=== PATIENT | female | born 1960 | race Two or more races ===

== ENCOUNTER 2018-11-02 17:08 | Emergency (ER) | payer SELFPAY ==
[~2018-11-02] VITALS: Ht 170.2 cm; Wt 71.2 kg
[2018-11-02 17:39] LABS: BASO % 0 % (0-3); EOS % 0 % (0-3); HEMATOCRIT 39.2 % (36.0-47.0); HEMOGLOBIN 13.4 g/dL (12.0-15.5); LYMPH # 0.7 x10^3/uL (1.0-4.8); LYMPH % 6 % (24-48); MEAN CORPUSCULAR HEMOGLOBIN 30 pg (25-35); MEAN CORPUSCULAR HGB CONC 34 g/dL (31-37); MEAN CORPUSCULAR VOLUME 87 fL (79-100); MONO # 0.7 x10^3/uL (0.0-1.1); MONO % 6 % (0-9); NEUT # 11.1 x10^3/uL (1.8-7.7); NEUT % 88 % (31-73); PLATELET COUNT 212 x10^3/uL (140-400); RED CELL DISTRIBUTION WIDTH 12.9 % (11.5-14.5); WHITE BLOOD COUNT 12.6 x10^3/uL (4.0-11.0)
[2018-11-02] MEDS ORDERED: MORPHINE SULFATE 2 MG/ML VIAL. IV ONE (17:45)
[2018-11-02] MEDS ORDERED: ONDANSETRON PF 4 MG/2 ML VIAL. IV ONE (17:45)
[2018-11-02] MEDS ORDERED: IV NORMAL SALINE 1000ML BAG 1,000 ML IV ONE (17:45)
[2018-11-02 17:48] LABS: BILIRUBIN,URINE NEGATIVE (NEG); CLARITY,URINE CLEAR; COLOR,URINE YELLOW; NITRITE,URINE NEGATIVE (NEG); PH,URINE 8.5; PROTEIN,URINE NEGATIVE (NEG-TRACE); UROBILINOGEN,URINE 0.2 mg/dL (0.2 mg/dL)
[2018-11-02 17:50] LABS: CALCIUM 9.3 mg/dL (8.5-10.1); CREATININE 0.8 mg/dL (0.6-1.0); GFR 73.7; POTASSIUM 3.9 mmol/L (3.5-5.1)
[2018-11-02 17:53] LABS: ALBUMIN 4.1 g/dL (3.4-5.0); TOTAL BILIRUBIN 0.6 mg/dL (0.2-1.0); TOTAL PROTEIN 8.2 g/dL (6.4-8.2)
[2018-11-02] MEDS ORDERED: CCPD PATIENT. MC PRN (18:00)
[2018-11-02] MEDS ORDERED: IOHEXOL 300 MG/ML 100ML VIAL. IV ONE (18:00)
[2018-11-02 18:01] LABS: BACTERIA,URINE 0 /HPF (0-FEW); SQUAMOUS EPITHELIAL CELL,UR MOD /LPF; WBC,URINE 0 /HPF (0-4)
--- NOTE | 2018-11-02 18:01 | PHYS DOC ---
Past Medical History Past Medical History: Cancer Additional Past Medical Histor: breast ca Past Surgical History: Tubal ligation, Other Additional Past Surgical Histo: R mastectomy Alcohol Use: None Drug Use: None Adult General Chief Complaint Chief Complaint: DIZZY/LIGHT HEADED HPI HPI Patient is a 58 year old female with a history of thyroid disorder presents to the ED complaining of abdominal pain times one day. States she woke up with upper abdominal pain, body aches and vomiting. Reports he has had body aches for the last 4 days. Describes her pain as achy/sharp. Rates her pain as 6 out of 10. Nothing makes it better or worse. Associated symptoms include mild cough and chills. Denies chest pain, shortness of breath, back pain, neck pain, fever, diarrhea, dysuria or hematuria. Family interprets for patient. Review of Systems Review of Systems Constitutional: Complains of chills. Denies fever. [] Eyes: Denies change in visual acuity, redness, or eye pain [] HENT: Denies nasal congestion or sore throat [] Respiratory: Complains of cough. Denies shortness of breath [] Cardiovascular: No additional information not addressed in HPI [] GI: Complains of nausea, vomiting, abdominal pain. Denies bloody stools or diarrhea [] : Denies dysuria or hematuria [] Musculoskeletal: Denies back pain or joint pain [] Integument: Denies rash or skin lesions [] Neurologic: Denies headache, focal weakness or sensory changes [] All other systems were reviewed and found to be within normal limits, except as documented in this note. Current Medications Current Medications Current Medications Medications (Trade) Dose Ordered Sig/Vikram Start Time Stop Time Status Last Admin Dose Admin Iohexol (Omnipaque 300 Mg/ml) 75 ml 1X ONCE 11/02/18 18:00 11/02/18 18:01 DC 11/02/18 18:13 75 ML Morphine Sulfate (Morphine Sulfate) 2 mg 1X ONCE 11/02/18 17:45 11/02/18 17:46 DC 11/02/18 17:56 2 MG Ondansetron HCl (Zofran) 4 mg 1X ONCE 11/02/18 17:45 11/02/18 17:46 DC 11/02/18 17:56 4 MG Peritoneal Dialysis Solution (Continuous Cycling Peritoneal Dialysis Pt) 1 each PRN DAILY PRN 11/02/18 18:00 Sodium Chloride 1,000 ml @ 1,000 mls/hr 1X ONCE 11/02/18 17:45 11/02/18 18:44 DC 11/02/18 17:56 1,000 MLS/HR Allergies Allergies Allergies Coded Allergies Type Severity Reaction Last Updated Verified No Known Drug Allergies 11/02/18 No Physical Exam Physical Exam Constitutional: Well developed, well nourished, no acute distress, non-toxic appearance. [] HENT: Normocephalic, atraumatic. TM not bulging and without erythema. Mild pharyngeal erythema. no exudate. Uvula midline. Eyes: PERRLA, EOMI, conjunctiva normal, no discharge. [] Neck: Normal range of motion, no tenderness, supple, no stridor. [] Cardiovascular:Heart rate regular rhythm, no murmur [] Lungs & Thorax: Bilateral breath sounds clear to auscultation [] Abdomen: Bowel sounds normal, soft, mild diffuse abdominal tenderness, no masses, no pulsatile masses. [] Skin: Warm, dry, no erythema, no rash. [] Back: No tenderness, no CVA tenderness. [] Extremities: No tenderness, no cyanosis, no clubbing, ROM intact, no edema. [] Neurologic: Alert and oriented X 3, normal motor function, normal sensory function, no focal deficits noted. [] Psychologic: Affect normal, judgement normal, mood normal. [] Current Patient Data Vital Signs Vital Signs Date Time Temp Pulse Resp B/P (MAP) Pulse Ox O2 Delivery O2 Flow Rate FiO2 11/02/18 17:56 18 96 Room Air 11/02/18 17:25 98.3 98 107/67 (80) 98.3 Lab Values Laboratory Tests Test 11/02/18 17:20 11/02/18 17:31 Urine Collection Type Unknown Urine Color Yellow Urine Clarity Clear Urine pH 8.5 Urine Specific [place] 1.025 Urine Protein Negative mg/dL (NEG-TRACE) Urine Glucose (UA) Negative mg/dL (NEG) Urine Ketones (Stick) Negative mg/dL (NEG) Urine Blood Negative (NEG) Urine Nitrite Negative (NEG) Urine Bilirubin Negative (NEG) Urine Urobilinogen Dipstick 0.2 mg/dL (0.2 mg/dL) Urine Leukocyte Esterase Negative (NEG) Urine RBC 1-2 /HPF (0-2) Urine WBC 0 /HPF (0-4) Urine Squamous Epithelial Cells Mod /LPF Urine Bacteria 0 /HPF (0-FEW) Urine Mucus Mod /LPF White Blood Count 12.6 x10^3/uL (4.0-11.0) H Red Blood Count 4.50 x10^6/uL (3.50-5.40) Hemoglobin 13.4 g/dL (12.0-15.5) Hematocrit 39.2 % (36.0-47.0) Mean Corpuscular Volume 87 fL (79-100) Mean Corpuscular Hemoglobin 30 pg (25-35) Mean Corpuscular Hemoglobin Concent 34 g/dL (31-37) Red Cell Distribution Width 12.9 % (11.5-14.5) Platelet Count 212 x10^3/uL (140-400) Neutrophils (%) (Auto) 88 % (31-73) H Lymphocytes (%) (Auto) 6 % (24-48) L Monocytes (%) (Auto) 6 % (0-9) Eosinophils (%) (Auto) 0 % (0-3) Basophils (%) (Auto) 0 % (0-3) Neutrophils # (Auto) 11.1 x10^3/uL (1.8-7.7) H Lymphocytes # (Auto) 0.7 x10^3/uL (1.0-4.8) L Monocytes # (Auto) 0.7 x10^3/uL (0.0-1.1) Eosinophils # (Auto) 0.0 x10^3/uL (0.0-0.7) Basophils # (Auto) 0.0 x10^3/uL (0.0-0.2) Segmented Neutrophils % 77 % (35-66) H Band Neutrophils % 7 % (0-9) Lymphocytes % 8 % (24-48) L Monocytes % 7 % (0-10) Basophils % 1 % (0-3) Platelet Estimate Adequate (ADEQUATE) Sodium Level 135 mmol/L (136-145) L Potassium Level 3.9 mmol/L (3.5-5.1) Chloride Level 99 mmol/L (98-107) Carbon Dioxide Level 27 mmol/L (21-32) Anion Gap 9 (6-14) Blood Urea Nitrogen 12 mg/dL (7-20) Creatinine 0.8 mg/dL (0.6-1.0) Estimated GFR (Cockcroft-Gault) 73.7 BUN/Creatinine Ratio 15 (6-20) Glucose Level 110 mg/dL (70-99) H Calcium Level 9.3 mg/dL (8.5-10.1) Total Bilirubin 0.6 mg/dL (0.2-1.0) Aspartate Amino Transferase (AST) 23 U/L (15-37) Alanine Aminotransferase (ALT) 29 U/L (14-59) Alkaline Phosphatase 123 U/L (46-116) H Troponin I Quantitative < 0.017 ng/mL (0.000-0.055) LN-Cxj-D-Type Natriuretic Peptide 186 pg/mL (0-124) H Total Protein 8.2 g/dL (6.4-8.2) Albumin 4.1 g/dL (3.4-5.0) Albumin/Globulin Ratio 1.0 (1.0-1.7) Lipase 135 U/L (73-393) Laboratory Tests 11/02/18 17:31 Laboratory Tests 11/02/18 17:31 EKG EKG [] Radiology/Procedures Radiology/Procedures []PROCEDURE: CHEST AP ONLY Indication:Upper abdominal pain, dizziness, lightheadedness. TECHNIQUE:Portable AP chest X-ray COMPARISON: None FINDINGS: Heart is normal in size. Diffuse bilateral interstitial opacities without focal consolidation. No pneumothorax or pleural effusion. Visualized bony thorax within normal limits. IMPRESSION: Chronic interstitial changes, atypical/viral infection or mild interstitial pulmonary edema. CT abdomen pelvis with contrast dated 11/02/2018. No comparison available. Clinical data indication: Diffuse abdominal pain. TECHNIQUE: Contiguous axial imaging of the abdomen and pelvis performed after the administration of 75 cc Omnipaque 300. One or more of the following individualized dose reduction techniques were utilized for this examination: 1. Automated exposure control 2. Adjustment of the mA and/or kV according to patient size 3. Use of iterative reconstruction technique. FINDINGS: Limited images of lung bases are clear. Heart size within normal limits. No pleural or pericardial effusion. Diffuse low-density of the liver compatible with fatty infiltration. No apparent mass. Gallbladder unremarkable. Spleen, pancreas, adrenal glands and kidneys are unremarkable. No hydronephrosis. Unopacified GI tract normal in caliber and contour. No focal bowel wall thickening. No inflammatory stranding in the mesentery. The appendix is normal in caliber. No ascites or lymphadenopathy. Abdominal aorta normal in caliber. Images of pelvis show nondistended urinary bladder. The uterus and adnexa are unremarkable. No free fluid or pelvic lymphadenopathy. Bone windows show no acute findings. Mild multilevel spondylosis. IMPRESSION: 1. No acute abnormality of abdomen or pelvis. Normal appendix. 2. Mild fatty infiltration of the liver. Indication:Nausea, vomiting Abdominal pain. TECHNIQUE: Grayscale, color Doppler and spectral waveform is of the abdomen obtained. COMPARISON: CT from same day earlier FINDINGS: Pancreas within normal limits. IVC and aorta are within normal limits. Liver is mildly enlarged measuring 17.5 cm with diffuse increased echogenicity and decreased through transmission. No gallstones, pericholecystic fluid or gallbladder wall thickening. Right kidney measures 9.5 cm in length without hydronephrosis. CBD measures 3 mm in diameter and is within normal limits. IMPRESSION: No cholelithiasis or sonographic evidence of acute cholecystitis. Mild hepatomegaly with hepatic steatosis. Course & Med Decision Making Course & Med Decision Making Pertinent Labs and Imaging studies reviewed. (See chart for details) []Discussed imaging findings with patient. Patient's chest x-ray shows interstitial changes and possible atypical/viral infection. Other imaging unremarkable. Patient has subjective fever, body aches, upper abdominal pain and cough. We'll treat outpatient with azithromycin, prednisone and cough suppressant. Patient well-appearing on reexamination. States she is feeling much better. Discussed symptomatic treatment and follow-up with PCP this week. Provided contact information/education. Discussed reasons to return to the ED. P atient understands and agrees with plan. Dragon Disclaimer Dragon Disclaimer This electronic medical record was generated, in whole or in part, using a voice recognition dictation system. Departure Departure Impression: Primary Impression: Cough Additional Impression: Atypical pneumonia Disposition: 01 HOME, SELF-CARE Condition: IMPROVED Referrals: BRETT PAK MD (PCP) Patient Instructions: Pneumonia, Adult Scripts Benzonatate (TESSALON PERLE) 100 Mg Capsule 1 CAP PO TID, #21 CAP Prov: DESHAUN MORRIS 11/02/18 Prednisone (PREDNISONE) 50 Mg Tablet 1 TAB PO DAILY for 5 Days, #5 TAB Prov: DESHAUN MORRIS 11/02/18 Azithromycin (AZITHROMYCIN TABLET) 250 Mg Tablet 1 PKG PO UD, #6 TAB Prov: DESHAUN MORRIS 11/02/18 Problem Qualifiers DESHAUN MORRIS Nov 02, 2018 18:01
--- NOTE | 2018-11-02 18:08 | RAD ---
Indication:Upper abdominal pain, dizziness, lightheadedness. TECHNIQUE:Portable AP chest X-ray COMPARISON: None FINDINGS: Heart is normal in size. Diffuse bilateral interstitial opacities without focal consolidation. No pneumothorax or pleural effusion. Visualized bony thorax within normal limits. IMPRESSION: Chronic interstitial changes, atypical/viral infection or mild interstitial pulmonary edema. Electronically signed by: Jutso Barboza DO (11/02/2018 6:05 PM) [facility]
[2018-11-02 18:11] LABS: % BANDS 7 % (0-9); % BASOS 1 % (0-3); % LYMPHS 8 % (24-48); % MONOS 7 % (0-10); % SEGS 77 % (35-66); PLT ESTIMATE ADEQUATE (ADEQUATE)
--- NOTE | 2018-11-02 18:20 | RAD ---
CT abdomen pelvis with contrast dated 11/02/2018. No comparison available. Clinical data indication: Diffuse abdominal pain. TECHNIQUE: Contiguous axial imaging of the abdomen and pelvis performed after the administration of 75 cc Omnipaque 300. One or more of the following individualized dose reduction techniques were utilized for this examination: 1. Automated exposure control 2. Adjustment of the mA and/or kV according to patient size 3. Use of iterative reconstruction technique. FINDINGS: Limited images of lung bases are clear. Heart size within normal limits. No pleural or pericardial effusion. Diffuse low-density of the liver compatible with fatty infiltration. No apparent mass. Gallbladder unremarkable. Spleen, pancreas, adrenal glands and kidneys are unremarkable. No hydronephrosis. Unopacified GI tract normal in caliber and contour. No focal bowel wall thickening. No inflammatory stranding in the mesentery. The appendix is normal in caliber. No ascites or lymphadenopathy. Abdominal aorta normal in caliber. Images of pelvis show nondistended urinary bladder. The uterus and adnexa are unremarkable. No free fluid or pelvic lymphadenopathy. Bone windows show no acute findings. Mild multilevel spondylosis. IMPRESSION: 1. No acute abnormality of abdomen or pelvis. Normal appendix. 2. Mild fatty infiltration of the liver. Electronically signed by: Curt Durand MD (11/02/2018 6:17 PM) [id number]
[2018-11-02] MEDS ORDERED: PRED50TA PO (19:39)
[2018-11-02] MEDS ORDERED: BENZ100C PO (19:39)
[2018-11-02] MEDS ORDERED: AZIT250T6 PO (19:39)
--- NOTE | 2018-11-02 19:56 | RAD ---
Indication:Nausea, vomiting Abdominal pain. TECHNIQUE: Grayscale, color Doppler and spectral waveform is of the abdomen obtained. COMPARISON: CT from same day earlier FINDINGS: Pancreas within normal limits. IVC and aorta are within normal limits. Liver is mildly enlarged measuring 17.5 cm with diffuse increased echogenicity and decreased through transmission. No gallstones, pericholecystic fluid or gallbladder wall thickening. Right kidney measures 9.5 cm in length without hydronephrosis. CBD measures 3 mm in diameter and is within normal limits. IMPRESSION: No cholelithiasis or sonographic evidence of acute cholecystitis. Mild hepatomegaly with hepatic steatosis. Electronically signed by: Justo Barboza DO (11/02/2018 7:53 PM) [facility]
[2018-11-02 20:04] VITALS: BP 113/51
--- NOTE | 2018-11-03 14:07 | EKG ---
[facility] [address] [place] [address] Test Date: 2018-11-03 Test Time: 12:02:58 Pat Name: SONDRA DE LOS SANTOS Department: Room: Gender: F Marketing Development Manager: : 1960 Requested By: DESHAUN MORRIS Order Number: [id number] Reading MD: Measurements Intervals [place] Rate: P: TN: QRS: QRSD: T: QT: QTc: Interpretive Statements
== END 2018-11-02 20:11 | disposition home or self-care (01) ==
LOC: ER 17:08
DX: J18.9 Pneumonia, unspecified organism (principal)
CPT/HCPCS: 36415; 71045; 74177; 76705; 80053; 81001; 83690; 83880; 84484; 85007; 85025; 93005; 96361; 96374; 96375; 99285; J2270; J2405; J7030; Q9967

== ENCOUNTER 2020-10-23 09:27 | Emergency (ER) | payer SELFPAY ==
[~2020-10-23] VITALS: Ht 170.2 cm; Wt 73.3 kg
[~2020-10-23 09:27] MED LIST: AZIT250T6 PO; BENZ100C PO; PRED50TA PO
[2020-10-23 09:40] VITALS: BP 146/67
[2020-10-23] MEDS ORDERED: METH4TAB2 PO (10:49)
--- NOTE | 2020-10-23 10:50 | PHYS DOC ---
Past Medical History Past Medical History: Cancer Additional Past Medical Histor: breast ca,LYMPHEDEMA ? Past Surgical History: Tubal ligation, Other Additional Past Surgical Histo: R mastectomy Smoking Status: Never Smoker Alcohol Use: None Drug Use: None General Adult EDM: Chief Complaint: SKIN RASH/ABSCESS HPI: HPI: 60 yo F past medical history of hypothyroidism and right breast cancer in remission status post vasectomy, presents the ED with complaints of pruritic rash on her right arm for the past 2 days. Patient reports she has had this rash before, states it comes and goes/is intermittent over the course of the past year and has been prescribed steroids for it. Does not recall any new lotions/creams/detergents/foods. Has been vaccinated for Covid. No associated mucous membrane involvement or desquamation. 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 Review of Systems: Review of Systems: Constitutional: Denies fever or chills. [] Eyes: Denies change in visual acuity. [] HENT: Denies nasal congestion or sore throat. [] Respiratory: Denies cough or shortness of breath. [] Cardiovascular: Denies chest pain or edema. [] GI: Denies nausea or vomiting : Denies dysuria or hematuria Musculoskeletal: Denies back pain or joint pain. [] Integument: Denies desquamation or blistering lesions Neurologic: Denies headache, focal weakness or sensory changes. [] Psychiatric: Denies depression or anxiety. [] Heart Score: C/O Chest Pain: No Risk Factors: Risk Factors: DM, Current or recent (<one month) smoker, HTN, HLP, family history of CAD, obesity. Risk Scores: Score 0 - 3: 2.5% MACE over next 6 weeks - Discharge Home Score 4 - 6: 20.3% MACE over next 6 weeks - Admit for Clinical Observation Score 7 - 10: 72.7% MACE over next 6 weeks - Early Invasive Strategies Allergies: Allergies: Allergies Coded Allergies Type Severity Reaction Last Updated Verified No Known Drug Allergies 11/02/18 No Physical Exam: PE: Constitutional: Well developed, well nourished, no acute distress, non-toxic appearance. HENT: Normocephalic, atraumatic, moist mucous membranes with no ulcers Eyes: EOMI, conjunctiva normal, no discharge. Neck: Normal range of motion, supple, no nuchal rigidity or meningismus Cardiovascular: S1/2 present, regular rhythm Lungs & Thorax: Speaking in full sentences, bilateral equal chest rise, no tachypnea or increased work of breathing Skin: Warm, dry, round erythematous slightly raised patches of erythema of her right forearm with negative Nikolsky sign-does not extend to the arm, equal radial pulses, Extremities: No tenderness, no cyanosis, no lower extremity edema Neurologic: Alert and oriented X 3, normal motor function, normal sensory function, no focal deficits noted. [] Psychologic: Affect normal, judgement normal, mood normal. [] Current Patient Data: Vital Signs: Vital Signs Date Time Temp Pulse Resp B/P (MAP) Pulse Ox O2 Delivery O2 Flow Rate FiO2 10/23/20 09:40 98.5 91 16 146/67 (93) 100 Room Air 98.5 EKG: EKG: [] Radiology/Procedures: Radiology/Procedures: [] Course & Med Decision Making: Course & Med Decision Making Pertinent Labs and Imaging studies reviewed. (See chart for details) Concern for for pruritic maculopapular rash of her right forearm, has been intermittent for the past year. Will prescribe Medrol Dosepak. I do suspect possible vasculitis >> allergic reaction, although cannot exclude any contact dermatitis. Patient with no mucous membranes involvement. Will discharge home with strict ED return precautions were given for fever, worsening rash, skin sloughing or purulent drainage. Encouraged urgent outpatient follow-up with PMD and Allergy and Immunology. Life-threatening processes were considered but are low suspicion at this time, given history, physical exam and ED workup. Pt was educated on all prescription medications and adverse effects. All patient's questions were answered and pt was stable at time of discharge. Life/limb-threatening differential includes but is not limited to, erythema multiforme, cadena-yara syndrome, toxic epidermal necrolysis, staphylococcal scalded skin syndrome, necrotizing fasciitis/myositis/cellulitis, purpura fulminans, heparin or warfarin induced skin necrosis, angioedema, anaphylaxis drug rash, disseminated intravascular coagulation, disseminated gonococcal disease, vasculitis, septicemia, petechial disorder or coagulopathy, viral exanthem, Kawasaki's disease or life-threatening burn requiring burn center management or escharotomy. I have spoken with the patient and/or caregivers. I explained the patient's condition, diagnoses and treatment plan based on the information available to me at this time. I have answered the patient and/or caregiver's questions and addressed any concerns. The patient and/or caregivers have a good understanding of patient's diagnosis, condition and treatment plan as can be expected at this point. Vital signs have been stable. Patient's condition is stable and appropriate for discharge from the emergency department. Patient will pursue further outpatient evaluation with primary care physician or other designated or consulting physician as outlined in the discharge instructions. The patient and/or caregivers are agreeable to this plan of care and follow-up instructions have been explained in detail. The patient and/or caregivers have received these instructions in written form and have expressed an understanding of the discharge instructions. The patient and/or caregivers are aware that any significant change of condition or worsening of symptoms should prompt immediate return to this or the closest emergency department or call to 1. Brock Disclaimer: Brock Disclaimer: This electronic medical record was generated, in whole or in part, using a voice recognition dictation system. Departure Departure Impression: Primary Impression: Rash Disposition: 01 HOME / SELF CARE / HOMELESS Condition: STABLE Referrals: ISABEL COOPER APRN (PCP) Follow-up with your primary care physician in 24 to 48 hours OR FOLLOW UP WITH FAMILY MEDICINE: [address], [address] [place] [address] Patient Instructions: Rash Additional Instructions: [facility] Call for appointment [phone] [facility] on the [address], [address] (Address for directions and navigation systems: [address] [place] [address]) EMERGENCY DEPARTMENT GENERAL DISCHARGE INSTRUCTIONS Thank you for coming to [facility] Emergency Department (ED) today and trusting us with you care. We trust that you had a positive experience in our Emergency Department. If you wish to speak to the department management, you may call the Director at [phone]. YOUR FOLLOW UP INSTRUCTIONS ARE FOLLOWS: 1. Do you have a private Doctor? If you do not have a private doctor, please ask for a resource list of physicians or clinics that may be able to assist you with follow up care. 2. The Emergency Physicain has interpreted your x-rays. The X-Ray specialist will also review them. If there is a change in the findings, you will be notified in 48 hours when at all possible. 3. A lab test or culture has been done, your results will be reviewed and you will be notified if you need a change in treatment. ADDITIONAL INSTRUCTIONS AND INFORMATION: 1. Your care today has been supervised by a physician who is specially trained in emergency care. Many problems require more than one evaluation for a complete diagnosis and treatment. We recommend that you schedule your follow up appointment as recommended to ensure complete treatment of you illness or injury. If you are unable to obtain follow up care and continue to have a problem, or if your condition worsens, we recommend that you return to the ED. 2. We are not able to safely determine your condition over the phone nor are we able to give sound medical advice over the phone. For these safety reasons, if you call for medical advice we will ask you to come to the ED for further evaluation. 3. If you have any questions regarding these discharge instructions please call the ED at [phone]. SAFETY INFORMATION: In the interest of safety, wellness, and injury prevention; we encourage you to wear your sealbelt, if you smoke; quite smoking, and we encourage family to use a protective helmet for bicycling and other sporting events that present an increased risk for head injury. IF YOUR SYMPTOMS WORSEN OR NEW SYMPTOMS DEVELOP, OR YOU HAVE CONCERNS ABOUT YOUR CONDITION; OR IF YOUR CONDITION WORSENS WHILE YOU ARE WAITING FOR YOUR FOLLOW UP APPOINTMENT; EITHER CONTACT YOUR PRIMARY CARE DOCTOR, THE PHYSICIAN WHOSE NAME AND NUMBER YOU WERE GIVEN, OR RETURN TO THE ED IMMEDIATELY. Scripts Methylprednisolone (MEDROL) 4 Mg Tab.ds.pk 1 PKG PO UD for inflammation, #1 PKG Prov: ZECHARIAH NG DO 10/23/20 ZECHARIAH NG DO Oct 23, 2020 10:50
== END 2020-10-23 11:06 | disposition home or self-care (01) ==
LOC: ER 09:27
DX: R21 Rash and other nonspecific skin eruption (principal); L29.8 Other pruritus
CPT/HCPCS: 99283